=== PATIENT | female | born 1975 | race Caucasian/White ===

== ENCOUNTER 2023-02-19 14:35 | Emergency (ER) | payer SELFPAY ==
[~2023-02-19] VITALS: Ht 162.6 cm; Wt 68.0 kg
[2023-02-19 14:41] VITALS: TEMP 98.4; O2SAT 100
[2023-02-19 15:56] LABS: BASOPHILS % 0.3 % (0.0-2.0); EOSINOPHILS % 0.9 % (0.0-5.0); HEMOGLOBIN. 12.6 g/dL (12.0-16.0); LYMPHOCYTES % 11.4 % (20.0-50.0); MEAN CORPUSCULAR HGB CONC 31.4 g/dL (31.0-37.0); MEAN CORPUSCULAR VOLUME 89.1 fL (81.0-99.0); MEAN PLATELET VOLUME 9.7 fl (7.4-10.4); MONOCYTES % 4.2 % (2.0-8.0); NEUTROPHILS % 83.2 % (40.0-76.0); PLATELET 220 x1000/uL (130-400); RED BLOOD CELL COUNT 4.49 mill/uL (4.2-5.4); RED CELL DISTRIBUTION WIDTH 13.7 % (11.6-14.6); WHITE BLOOD COUNT 13.5 x1000/uL (4.5-11.0)
[2023-02-19 16:06] LABS: PROTHROMBIN TIME 10.5 sec (9.6-11.0)
[2023-02-19 16:08] LABS: HCG SCREEN NEGATIVE
[2023-02-19 16:11] LABS: ALANINE AMINOTRANSFERASE 74 IU/L (10-49); ALBUMIN 3.9 g/dL (3.2-4.8); ASPARTATE AMINOTRANSFERASE 115 IU/L (<34); BILIRUBIN TOTAL 0.5 mg/dL (0.1-1.0); CALCIUM 8.8 mg/dL (8.7-10.4); CARBON DIOXIDE 30 mEq/L (21-32); CHLORIDE 105 mEq/L (98-107); CREATININE 0.6 mg/dL (0.6-1.0); GLUCOSE 131 mg/dL (70-105); POTASSIUM 3.9 mEq/L (3.5-5.1); SODIUM 140 mEq/L (136-145); UREA NITROGEN BLOOD 14 mg/dL (9-23)
[2023-02-19 16:49] LABS: CLARITY URINE CLEAR (CLEAR); COLOR URINE YELLOW (YELLOW); GLUCOSE URINE NEGATIVE (NEGATIVE); KETONES URINE TRACE (NEGATIVE); LEUKOCYTE ESTERASE URINE NEGATIVE (NEGATIVE); NITRITE URINE NEGATIVE (NEGATIVE); OCCULT BLOOD URINE NEGATIVE (NEGATIVE); PH URINE 6.5 (4.5-8.0); PROTEIN URINE 1+ (NEGATIVE); SPECIFIC GRAVITY URINE 1.028 (1.005-1.030)
[2023-02-19 17:14] LABS: BACTERIA URINE 1+; RBC URINE 0-2 /hpf (0-2); SQUAMOUS EPITHELIAL CELL URINE 1+ /lpf (RARE/1+); WBC URINE 0-2 /hpf (0-2)
[2023-02-19] MEDS ORDERED: MAGNESIUM/ALUMINUM HYDROXIDE/SIMETHICONE 30ML UDC PO ONE (19:45)
[2023-02-19] MEDS ORDERED: KETOROLAC 60MG/2ML VIAL IM ONE (19:45)
[2023-02-19] MEDS ORDERED: KETOROLAC 60MG/2ML VIAL IM NR (22:45)
[2023-02-19] MEDS ORDERED: MAGNESIUM/ALUMINUM HYDROXIDE/SIMETHICONE 30ML UDC PO NR (22:45)
[2023-02-19] MEDS ORDERED: IBUP-2028 MT (23:07)
[2023-02-19] MEDS ORDERED: TOPUD MT (23:08)
[2023-02-19] MEDS ORDERED: MAG355OR21 MT (23:08)
[2023-02-19 23:11] VITALS: BP 116/64; PULSE 76; RESP 20
== END 2023-02-19 23:38 | disposition home or self-care (01) ==
LOC: ER 14:35
DX: K80.20 Calculus of gallbladder without cholecystitis without obstruction (principal); R10.13 Epigastric pain
CPT/HCPCS: 99285; 76705; 71045; 80053; 81003; 81025; 84703; 83690; 85025; 85610; 36415; 93005; 96372; J1885